=== PATIENT | female | born 1970 | race African-American/Black ===

== ENCOUNTER 2016-11-02 04:18 | Inpatient (IN) ==
[2016-11-02] MEDS ORDERED: methylPREDNISolone SOD SUC 125 MG/2 ML VIAL IV STA (04:29)
[2016-11-02] MEDS ORDERED: SODIUM CHLORIDE 0.9% 1,000 ML IV STA (04:29)
[2016-11-02] MEDS ORDERED: ALBUTEROL/IPRATROPIUM 3 ML NEB RESP TX STA (04:29)
[2016-11-02] MEDS ORDERED: methylPREDNISolone SOD SUC 125 MG/2 ML VIAL ONE (04:32)
[2016-11-02] MEDS ORDERED: IPRATROPIUM 500 MCG/2.5 ML NEB RESP TX STA (04:34)
[2016-11-02] MEDS ORDERED: ALBUTEROL NEB SOLN 5 MG/ML 20 ML/BOTTLE CONT NEB STA (04:35)
[2016-11-02 04:39] LABS: Basophils % 0.1 % (0.0-0.8); Eosinophils % 0.1 % (0.00-10.9); Hematocrit 43.6 VOL% (35.7-47.0); Hemoglobin 14.6 GM/DL (12.0-16.0); Immature Granulocytes % 0.3 %; Immature Granulocytes Absolute 0.04 #; Lymphocytes # 1.6 10*3/uL (1.4-4.0); Lymphocytes % 12.7 % (21.3-54.2); Mean Corpuscular HGB Conc 33.5 GM/DL (32-36); Mean Corpuscular Hemoglobin 30 PG (27-34); Mean Platelet Volume 9.2 FL (9.6-12.0); Monocytes # 0.7 10*3/uL (0.11-0.8); Monocytes % 5.4 % (1.7-12.7); Neutrophils % 81.4 % (38.7-73.9); Platelet Count 412 T/CUMM (130-400); Red Cell Distribution Width 13.4 % (9.3-17.3); White Blood Count 12.3 T/CUMM (4-12)
[2016-11-02] MEDS ORDERED: MAGNESIUM SULF RIDER 2 GM in PREMIX 1 EACH IV STA (04:42)
--- NOTE | 2016-11-02 04:52 | EKG Report ---
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
[2016-11-02] MEDS ORDERED: MAGNESIUM SULF RIDER 50 ML IV ONE (04:57)
[2016-11-02 04:59] LABS: Albumin 3.6 G/DL (3.4-5.0); Bilirubin,Total 0.5 MG/DL (0.2-1.0); Calcium 9.8 MG/DL (8.5-10.1); Total Protein 8.2 G/DL (6.4-8.3)
[2016-11-02 05:00] LABS: Osmolality,Calculated 278.4 MOS/KG (273-304); Potassium 3.7 MMOL/L (3.5-5.1)
--- NOTE | 2016-11-02 05:26 | Emergency Department Note ---
Arrival - Arrival Chief Complaint: Shortness of Breath Stated Complaint: cant breath ED Nursing Triage Note: Pt to triage with c/o SOB thats been going on for the past for weeks. Pt states she does have a hx of asthma. 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 Pt does have expiratory wheezing. Mode of Arrival: Wheelchair Time Seen by Provider: 11/02/16 04:28 - History of Present Illness HPI Narrative: This is a 46-year-old female of descent with a history of hypertension and asthma who presents with 3 days of intractable wheezing and hypoxemia with a room air O2 sat of 85%. There is no history of coronary artery disease or cardiomyopathy. Allergies/Adverse Reactions: Allergies Allergy/AdvReac Type Severity Reaction Status Date / Time aspirin Allergy Severe Swelling Verified 11/02/16 04:29 of Lip/Tongue/Throat ibuprofen [From Motrin] Allergy Severe Swelling Verified 11/02/16 04:29 of Lip/Tongue/Throat Home Medications: Home Medications Medication Instructions Recorded Confirmed Type Ipratropium/Albuterol Inhaler 1 puff INH Q4HR PRN 01/02/15 01/03/15 History [Combivent Respimat Inhaler] Metoprolol Tartrate Tab [Lopressor 50 mg PO DAILY 01/02/15 01/03/15 History Tab] Montelukast Tab [Singulair Tab] 10 mg PO BEDTIME 01/02/15 01/03/15 History amLODIPine [Norvasc] 10 mg PO DAILY 01/02/15 01/03/15 History Review of System - Review of System Constitutional: Absent: fever, night sweats Eyes: Absent: redness, vision change Head/Ears/Nose/Throat: Absent: epistaxis, nasal drainage Respiratory: Present: respiratory distress, wheezing Cardiovascular: Present: dyspnea on exertion. Absent: chest pain, orthopnea Gastrointestinal: Absent: diarrhea, constipation Genitourinary female: Absent: dysuria, urgency Musculoskeletal: Absent: joint swelling, lower back pain Skin: Absent: change in color, change in hair/nails Neurological: Absent: numbness, paresthesias Psychiatric: Absent: anxiety, depression Endocrine: Absent: polydipsia, polyuria Hematological/Lymphatic: Absent: lymphadenopathy Allergic/Immunologic: Absent: urticaria Medical,Surgical,& Family Hx - Medical History Cardio: History of: Hypertension HEENT: History of: HEENT Problems (Sinusitis-For FESS Dr. Barrett 01/03/15) Respiratory: History of: Asthma No history of: Respiratory Problems (Flu/Pneum Vac) Hematology: No history of: Blood Transfusion Reaction (Transfustions) Other: No history of: Anesthesia Reactions - Surgical History Reproductive Surgeries: Surgical HX of;: Hysterectomy (2005), Tubal Ligation ( 2003) Orthopedic Surgeries: Surgical HX of;: Orthopedic Surgery (1998 Lt Ankle) - Family History Family History: Reports;: Family Hypertension (MATERNAL GRANDMOTHER) Denies;: Family Anesthesia Reaction - Social History Smoking Status: Never smoker Frequency of Alcohol Use: None Type of Drug Use: None Exam Vital Signs: Vital Signs Temperature 98.1 F 11/02/16 04:33 Pulse Rate 116 H 11/02/16 04:41 Respiratory Rate 24 11/02/16 04:41 Blood Pressure 182/102 11/02/16 04:33 O2 Sat by Pulse Oximetry 88 L 11/02/16 04:41 - Head Head exam: Present: atraumatic, normocephalic - Eye Eye exam: Present: PERRL, EOMI - ENT ENT exam: Present: normal exam - Neck Neck exam: Present: normal inspection, full ROM - Chest Chest inspection: Present: normal inspection, symmetric chest wall rise - Respiratory Respiratory exam: Present: wheezes - Cardiovascular Cardiovascular exam: Present: tachycardia - Abdominal Exam Abdominal exam: Present: soft, normal bowel sounds - Extremities Exam Extremities exam: Present: normal inspection, full ROM - Back Exam Back exam: Present: normal inspection, full ROM - Neurological Exam Neurological exam: Present: alert, oriented X3, CN II-XII intact - Psychiatric Psychiatric exam: Present: normal affect, normal mood - Skin Skin exam: Present: warm, dry Results - Labs CBC & BMP: 11/02/16 04:31 11/02/16 04:31
[2016-11-02 06:01] LABS: VBG Base Excess -1.3 MEQ/L (0-4); VBG HCO3 22.4 MEQ/L (24-28); VBG Oxygen Saturation 60.2 %; VBG PCO2 51.7 MMHG (41-51); VBG PH 7.31
--- NOTE | 2016-11-02 06:10 | Hospitalist History & Physical ---
Assessment and Plan (1) Acute asthma exacerbation Status: Acute Current Visit: Yes (2) Hypertension Status: Acute Assessment and plan: Our plan for this patient will be admitting her to our service. Schedule her breathing treatments and steroids. Continue home meds as appropriate. Patient has limited resources and probably needs to be on an inhaled steroid but is unable to afford it. Current Visit: Yes History of Present Illness Chief complaint: Shortness of breath and wheezing History of present illness: Ms. Saul is a 46 year old female with past medical history of asthma and hypertension who was in her normal state of health until approximately 4 days ago. Patient reports at that time she noticed increase in her wheezing and her cough. She denies any fever. She reports her cough is dry. She went to a urgent care clinic today and was given a steroid shot in 2 breathing treatments. She felt fairly good the whole day but tonight her symptoms returned. She came up to our hospital for further evaluation I was consulted to admit her for an asthma exacerbation Home Medications Medication Instructions Recorded Confirmed Type Metoprolol Tartrate Tab [Lopressor 50 mg PO DAILY 01/02/15 11/02/16 History Tab] amLODIPine [Norvasc] 10 mg PO DAILY 01/02/15 11/02/16 History Albuterol Sulfate [Proair HFA] 1 - 2 puff INH Q4-6H PRN 11/02/16 11/02/16 History Albuterol/Ipratropium Neb [Duoneb] 1 packet INH Q4-6H PRN 11/02/16 11/02/16 History Loratadine Tab [Claritin Tab] 1 tablet PO DAILY 11/02/16 11/02/16 History Allergies Allergy/AdvReac Type Severity Reaction Status Date / Time aspirin Allergy Severe Swelling Verified 11/02/16 04:29 of Lip/Tongue/Throat ibuprofen [From Motrin] Allergy Severe Swelling Verified 11/02/16 04:29 of Lip/Tongue/Throat Medical,Surgical,& Family Hx - Medical History Cardio: History of: Hypertension HEENT: History of: HEENT Problems (Sinusitis-For FESS Dr. Barrett 01/03/15) Respiratory: History of: Asthma No history of: Respiratory Problems (Flu/Pneum Vac) Hematology: No history of: Blood Transfusion Reaction (Transfustions) Other: No history of: Anesthesia Reactions - Surgical History Reproductive Surgeries: Surgical HX of;: Hysterectomy (2006), Tubal Ligation ( 2004) Orthopedic Surgeries: Surgical HX of;: Orthopedic Surgery (1998 Lt Ankle) - Family History Family History: Reports;: Family Hypertension (MATERNAL GRANDMOTHER) Denies;: Family Anesthesia Reaction - Social History Smoking Status: Never smoker Frequency of Alcohol Use: None Type of Drug Use: None 12 point system: reviewed and no additional remarkable complaints except as stated Exam - Constitutional Vitals: Period Temp Pulse Resp BP Sys/Grossman Pulse Ox Last 24 Hr 98.1 F-98.1 F 116-124 14-24 182-182/102-102 82-88 General appearance: over weight - Head Head exam: Present: normal inspection - Eye Eye exam: Present: EOMI Pupils: Present: KIMBERLY - ENT ENT exam: Present: normal exam - Neck Neck exam: Present: normal inspection - Respiratory Respiratory exam: Present: wheezes - Cardiovascular Cardiovascular exam: Present: tachycardia - GI/Abdominal GI/Abdominal exam: Present: normal bowel sounds - Extremities Exam Extremities exam: Present: normal inspection - Back Exam Back exam: Present: normal inspection - Neurological Exam Neurological exam: Present: alert Results - Labs CBC & BMP: 11/02/16 04:31 11/02/16 04:31
[2016-11-02] MEDS ORDERED: ALBUTEROL 2.5 MG/3 ML NEB RESP TX PRN (06:12)
[2016-11-02] MEDS ORDERED: ONDANSETRON 4 MG/2 ML VIAL IV PRN (06:12)
--- NOTE | 2016-11-02 06:50 | XRay Report ---
XR chest 1V portable Indication: Shortness of breath. Chest one view: No comparison. Heart size and mediastinal contour are normal. There is diffuse mild parabronchial thickening present. No focal infiltrates are shown. Pleural spaces are clear. Bones are intact. Impression: Mild airways disease such as bronchitis or viral syndrome. No focal pneumonia. PROCEDURE INTERPRETED AT [facility] DEPARTMENT OF RADIOLOGY Final Report Signed by: Eriberto Carrillo M.D.
[2016-11-02] MEDS: ALBUTEROL/IPRATROPIUM 3 ML NEB RESP TX SCH ×3 (07:34→19:09)
[2016-11-02] MEDS: LORATADINE 10 MG TABLET PO SCH (09:02)
[2016-11-02] MEDS: ENOXAPARIN 40 MG/0.4 ML SYRINGE SUBCUT SCH (09:02)
[2016-11-02] MEDS: amLODIPine 10 MG TABLET PO SCH (09:02)
[2016-11-02] MEDS: methylPREDNISolone SOD SUC 125 MG/2 ML VIAL IV SCH ×3 (09:02→21:22)
[2016-11-02] MEDS: PANTOPRAZOLE 40 MG TABLET PO SCH (09:02)
[2016-11-02] MEDS: METOPROLOL TARTRATE 50 MG TABLET PO SCH (09:02)
--- NOTE | 2016-11-02 11:36 | Hospitalist Progress Note ---
Assessment and Plan (1) Respiratory distress Status: Acute Assessment and plan: This is a result of bronchospasm and possible pneumonitis and hypoxia as noted below patient is on supportive care with nasal cannula oxygen at this time and saturating well. Is on aggressive respiratory treatments and a beta-2 organism. Current Visit: Yes (2) Status asthmaticus Status: Acute Assessment and plan: Aggressively treated the patient with ipratropium bromide plus albuterol by nebulizer. She should also be on systemic steroids with Solu-Medrol preferably 40 mg IV every 8 hours at this time. I will start her on budesonide 0.5 mg inhaled every 12 hours. He should continue this at home. Because of recurrence of a problem she will need long-term leukotriene antagonist. Singulair 10 mg daily may help. She states that these events are much more frequent now and she thinks maybe there is mold in her immediate environment at her place of residence. I informed the patient that this needs to be taken care of because if not these events will continue. Pharmacy will check levels of IgE and if the elevated there has to be an attempt to obtain level of Aspergillus specific IgE. Will probably need to be seen by a tree fruit and nut farming supervisor at that time. Right now will take care of the acute events in the hospital diagnoses acute exacerbation of asthma with status asthmaticus which seem to be improving and looking at the events from yesterday to today Current Visit: Yes (3) Acute respiratory failure with hypoxia Status: Acute Assessment and plan: As above patient is on oxygen support at this time per nasal cannula alone. Current Visit: Yes (4) Morbid obesity Status: Acute Current Visit: Yes (5) Pneumonitis Status: Acute Assessment and plan: Chest x-ray looks the patient has a pneumonitis bibasilarly. This could be an acute viral syndrome it could also be just small airway inflammation. Is afebrile. I will check for mycoplasma IgM. Put her on Levaquin 750 IV every day. Current Visit: Yes Hospitalist: Subjective Interval history: Patient has been seen interviewed and examined and chart has been reviewed. She was admitted area morning hours of today after distress noted in the emergency room to be in status asthmaticus with decreased PO2 by pulse oximetry. There is an arterial blood gas drawn but from what I can look at this was a venous blood draw. She is reporting recurrent events of bronchospasms and asthma symptoms and states that he started happening when she moved into a residence not a long time ago. She has not had any events of intubation with this issue. Strongly suspicious that there is mold around where she is living. With that in mind I would worry about allergic bronchospastic aspergillosis. Will check IgE levels. She is on some oral steroids and states that whenever she gets steroids and "antibiotics" she gets better. There has been no associated fever her expectoration is very thin this most of bronchospasms. I did advise the patient that she probably does not need antibiotics but will probably need steroids therapy more aggressively. She is not on Singulair and I doubt that she is on any inhaled steroids because she stated that in the past she has been unable to obtain them. Exam - Constitutional Vitals: Period Temp Pulse Resp BP Sys/Grossman Pulse Ox Last 24 Hr 96.6 F-98.1 F 110-130 14-105 124-182/69-102 82-93 General appearance: morbidly obese - Head Head exam: Present: normocephalic, atraumatic - Eye Eye exam: Present: EOMI Pupils: Present: KIMBERLY - ENT ENT exam: Present: normal exam, normal oropharynx - Respiratory Respiratory exam: Present: clear to auscultation bilaterally, wheezes ( Bilateral wheezing with prolonged expiratory phase ratio of 1-2 she has to stop speaking at times to catch her breath.) - Cardiovascular Cardiovascular exam: Present: tachycardia, other (Just has had a respiratory treatment regular rhythm) - GI/Abdominal GI/Abdominal exam: Present: normal bowel sounds, soft - Extremities Exam Extremities exam: Present: full ROM - Neurological Exam Neurological exam: Present: alert, oriented X3, CN II-XII intact - Psychiatric Psychiatric exam: Present: normal mood, other (Slightly apprehensive) - Skin Skin exam: Present: normal color, warm, dry Results - Labs CBC & BMP: 11/02/16 04:31 11/02/16 04:31 Lab Results: I have reviewed the past 24 hour labs
[2016-11-02] MEDS: LEVOFLOXACIN INJ 750 MG in PREMIX 1 EACH IV SCH (12:28)
[2016-11-02] MEDS: BENZONATATE 100 MG CAPSULE PO PRN ×2 (17:06→21:22)
[2016-11-02] MEDS: MONTELUKAST 10 MG TABLET PO SCH (21:22)
[2016-11-02] MEDS: ZALEPLON 5 MG CAPSULE PO PRN (21:26)
[2016-11-03] MEDS: ALBUTEROL/IPRATROPIUM 3 ML NEB RESP TX SCH ×4 (00:24→19:24)
[2016-11-03] MEDS: methylPREDNISolone SOD SUC 125 MG/2 ML VIAL IV SCH ×4 (04:24→22:05)
[2016-11-03 05:05] LABS: Basophils % 0.1 % (0.0-0.8); Hematocrit 39.4 VOL% (35.7-47.0); Hemoglobin 13.3 GM/DL (12.0-16.0); Immature Granulocytes % 0.7 %; Immature Granulocytes Absolute 0.16 #; Lymphocytes % 4.3 % (21.3-54.2); Mean Corpuscular HGB Conc 33.8 GM/DL (32-36); Mean Corpuscular Hemoglobin 30 PG (27-34); Mean Corpuscular Volume 88.9 FL (87-102); Mean Platelet Volume 9.3 FL (9.6-12.0); Monocytes # 0.7 10*3/uL (0.11-0.8); Monocytes % 2.9 % (1.7-12.7); Neutrophils # 21.9 10*3/uL (1.4-7.4); Platelet Count 411 T/CUMM (130-400); Red Blood Count 4.43 MC/CUMM (3.8-5.5); Red Cell Distribution Width 13.9 % (9.3-17.3); White Blood Count 23.9 T/CUMM (4-12)
[2016-11-03 05:33] LABS: Albumin 2.8 G/DL (3.4-5.0); Bilirubin,Total 0.5 MG/DL (0.2-1.0); Calcium 9.2 MG/DL (8.5-10.1); Osmolality,Calculated 280.3 MOS/KG (273-304); Potassium 4.1 MMOL/L (3.5-5.1); Total Protein 6.5 G/DL (6.4-8.3)
[2016-11-03 05:35] LABS: Band Neutrophils 2 % (0-10); Giant Platelets Few; Lymphocytes 1 % (20-55); Platelet Estimate Adequate; Segmented Neutrophils 92 % (50-85); Total Cells Counted 100
--- NOTE | 2016-11-03 08:12 | Physician Query Form ---
CLICK EDIT DOCUMENT TO SELECT QUERY ANSWER --> OK --> SIGN Catalina García RN, CCDS Certified Clinical Power Brake Rebuilder W) [phone] (f) [phone] [email or web address] PROVIDERS: Make your selection(s) from the choices in EACH section by typing an "x" and enter comments in the comment section. Please use your independent medical judgment in providing your response. This request does not imply that any particular answer is desired or expected. CLINICAL INDICATORS: (Providers should not edit this section) The medical record indicates that the patient was admitted with acute asthma exacerbation, pneumonitis and the patient was treated with Proventil/ Levofloxacin/Solumedrol. Based on documentation of Asthma, can you please provide further specificity regarding the diagnosis? ( ) Mild intermittent extrinsic asthma with acute exacerbation ( ) Mild persistent extrinsic asthma with acute exacerbation ( ) Moderate persistent extrinsic asthma with acute exacerbation ( x) Severe persistent extrinsic asthma with acute exacerbation ( ) Mild intermittent extrinsic asthma with status asthmaticus ( ) Mild persistent extrinsic asthma with status asthmaticus ( ) Moderate persistent extrinsic asthma with status asthmaticus ( ) Severe intermittent extrinsic asthma with status asthmaticus ( ) Other, please specify: ( ) Clinically unable to determine COMMENTS: PLEASE ALSO DOCUMENT RESPONSE IN PROGRESS NOTES AND/OR DISCHARGE SUMMARY Use of terms such as suspected, likely, or probable (associated with a specific diagnosis that is being evaluated, monitored, or treated as if it exists) are acceptable and can be restated in the discharge summary if not ruled out. MTDD
[2016-11-03] MEDS: LORATADINE 10 MG TABLET PO SCH (08:18)
[2016-11-03] MEDS: amLODIPine 10 MG TABLET PO SCH (08:18)
[2016-11-03] MEDS: BENZONATATE 100 MG CAPSULE PO PRN ×2 (08:18→22:05)
[2016-11-03] MEDS: PANTOPRAZOLE 40 MG TABLET PO SCH (08:19)
[2016-11-03] MEDS: METOPROLOL TARTRATE 50 MG TABLET PO SCH (08:19)
[2016-11-03] MEDS: LEVOFLOXACIN INJ 750 MG in PREMIX 1 EACH IV SCH (08:19)
[2016-11-03] MEDS: ENOXAPARIN 40 MG/0.4 ML SYRINGE SUBCUT SCH (08:19)
--- NOTE | 2016-11-03 11:07 | Hospitalist Progress Note ---
Assessment and Plan (1) Respiratory distress Status: Acute Assessment and plan: This is a result of bronchospasm and possible pneumonitis and hypoxia as noted below patient is on supportive care with nasal cannula oxygen at this time and saturating well. Is on aggressive respiratory treatments and a beta-2 organism. Current Visit: Yes (2) Status asthmaticus Status: Acute Assessment and plan: Is obvious improvement from yesterday's situation. Patient will continue the same medication however we will keep him on oxygen supplementation using 2 L nasal cannula oxygen check peak flows every morning. I wanted to send her home today but because of the pleurisy and the relative hypoxemia she is still here on medications. I believe she will need a longer steroid taper with systemic steroids she should be on aerosolized steroids besides albuterol and ipratropium bromide. This should be a long-acting rescue treatment to every 12 hours with Advair (budesonide and sameterol.) Current Visit: Yes (3) Acute respiratory failure with hypoxia Status: Acute Assessment and plan: Still relatively hypoxic but she is getting better Current Visit: Yes (4) Morbid obesity Status: Acute Current Visit: Yes (5) Pneumonitis Status: Acute Assessment and plan: Chest x-ray looks the patient has a pneumonitis bibasilarly. This could be an acute viral syndrome it could also be just small airway inflammation. Is afebrile. I will check for mycoplasma IgM. Put her on Levaquin 750 IV every day. Current Visit: Yes Hospitalist: Subjective Interval history: Patient has been seen interviewed and examined and chart has been reviewed. Is still having negative wheezing she also complained of a pleuritic chest pain on the left side. Patient has 94% saturation of the 2 L of nasal cannula oxygen. I took her off the oxygen to evaluate if I could send her home she dropped down to 92 and was short of air and fighting to breathe. Admitted to the hospital in status asthmaticus yesterday has responded some to steroid beta-2 agonists, ipratropium bromide and systemic steroids but is still hypoxic. She also did have a pneumonitis on the chest x-ray I suspect that is the reason. She is not febrile. Does not have a cardiomegaly on chest x-ray. I believe this is asthma just taking time to get better will check it with a peak flows every morning including today. Exam - Constitutional Vitals: Period Temp Pulse Resp BP Sys/Grossman Pulse Ox Last 24 Hr 96.7 F-98.3 F 64-119 18-23 120-135/60-78 90-98 General appearance: morbidly obese - Head Head exam: Present: normocephalic, atraumatic - Eye Eye exam: Present: EOMI Pupils: Present: KIMBERLY - Respiratory Respiratory exam: Present: wheezes, other (Diffuse wheezing and complaining of pruritus on the left side. Hypoxic on room air with air hunger) - Cardiovascular Cardiovascular exam: Present: bradycardia, regular rate and rhythm - GI/Abdominal GI/Abdominal exam: Present: normal bowel sounds, soft - Extremities Exam Extremities exam: Present: full ROM - Neurological Exam Neurological exam: Present: alert, oriented X3, CN II-XII intact - Psychiatric Psychiatric exam: Present: normal affect, normal mood - Skin Skin exam: Present: normal color, warm, dry Results - Labs CBC & BMP: 11/03/16 04:49 11/03/16 04:49 Lab Results: I have reviewed the past 24 hour labs
[2016-11-03] MEDS: MONTELUKAST 10 MG TABLET PO SCH (22:05)
[2016-11-03] MEDS: ZALEPLON 5 MG CAPSULE PO PRN (22:05)
[2016-11-04] MEDS: ALBUTEROL/IPRATROPIUM 3 ML NEB RESP TX SCH ×4 (00:25→19:20)
[2016-11-04] MEDS: methylPREDNISolone SOD SUC 125 MG/2 ML VIAL IV SCH ×2 (04:35→08:25)
[2016-11-04] MEDS: METOPROLOL TARTRATE 50 MG TABLET PO SCH (08:22)
[2016-11-04] MEDS: amLODIPine 10 MG TABLET PO SCH (08:22)
[2016-11-04] MEDS: BENZONATATE 100 MG CAPSULE PO PRN ×2 (08:22→20:54)
[2016-11-04] MEDS: PANTOPRAZOLE 40 MG TABLET PO SCH (08:23)
[2016-11-04] MEDS: LORATADINE 10 MG TABLET PO SCH (08:23)
[2016-11-04] MEDS: ENOXAPARIN 40 MG/0.4 ML SYRINGE SUBCUT SCH (08:24)
[2016-11-04] MEDS: LEVOFLOXACIN INJ 750 MG in PREMIX 1 EACH IV SCH (09:37)
--- NOTE | 2016-11-04 10:49 | Hospitalist Progress Note ---
Assessment and Plan (1) Acute asthma exacerbation Status: Acute Assessment and plan: Getting better Kayla Will change steroids to po Continue levaquin Current Visit: Yes (2) Hypertension Status: Chronic Current Visit: Yes (3) Respiratory distress Status: Resolved Current Visit: Yes (4) Status asthmaticus Status: Resolved Current Visit: Yes (5) Morbid obesity Status: Chronic Current Visit: Yes (6) Pneumonitis Status: Acute Assessment and plan: Continue levaquin Current Visit: Yes Hospitalist: Subjective Interval history: No acute events overnight. Patient reports that she feels better. She is coughing up phlegm now. Exam - Constitutional Vitals: Period Temp Pulse Resp BP Sys/Grossmna Pulse Ox Last 24 Hr 96.2 F-98.9 F 89-111 18-22 107-140/64-79 92-98 General appearance: over weight - Head Head exam: Present: normocephalic, atraumatic - Eye Eye exam: Present: EOMI Pupils: Present: KIMBERLY - ENT ENT exam: Present: normal exam - Neck Neck exam: Present: normal inspection - Respiratory Respiratory exam: Present: other (coarse breath sounds). Absent: wheezes - Cardiovascular Cardiovascular exam: Present: regular rate and rhythm - GI/Abdominal GI/Abdominal exam: Present: normal bowel sounds, soft - Extremities Exam Extremities exam: Present: normal inspection - Back Exam Back exam: Present: normal inspection - Neurological Exam Neurological exam: Present: alert, oriented X3 - Psychiatric Psychiatric exam: Present: normal affect, normal mood - Skin Skin exam: Present: warm, intact Results - Labs CBC & BMP: 11/03/16 04:49 11/03/16 04:49
[2016-11-04 13:41] LABS: Mycoplasma pneumoniae Ab, IgG 1.88 index (<=0.90); Mycoplasma pneumoniae Ab, IgM 0.19 index (<=0.90)
[2016-11-04] MEDS: MONTELUKAST 10 MG TABLET PO SCH (20:52)
[2016-11-04] MEDS: ZALEPLON 5 MG CAPSULE PO PRN (20:52)
[2016-11-05] MEDS: ALBUTEROL/IPRATROPIUM 3 ML NEB RESP TX SCH ×2 (00:38→07:38)
[2016-11-05] MEDS: PANTOPRAZOLE 40 MG TABLET PO SCH (08:21)
[2016-11-05] MEDS: LORATADINE 10 MG TABLET PO SCH (08:22)
[2016-11-05] MEDS: BENZONATATE 100 MG CAPSULE PO PRN (08:23)
[2016-11-05] MEDS: METOPROLOL TARTRATE 50 MG TABLET PO SCH (08:23)
[2016-11-05] MEDS: amLODIPine 10 MG TABLET PO SCH (08:24)
[2016-11-05] MEDS: ENOXAPARIN 40 MG/0.4 ML SYRINGE SUBCUT SCH (08:24)
[2016-11-05] MEDS: LEVOFLOXACIN INJ 750 MG in PREMIX 1 EACH IV SCH (08:25)
[2016-11-05 08:32] VITALS: BP 123/74
[2016-11-05] MEDS ORDERED: predniSONE 20 MG TABLET PO SCH (09:00)
--- NOTE | 2016-11-05 11:07 | Discharge Summary ---
<Jann Mayo - Last Filed: 11/05/16 10:41> Hospital Course - Hospital Course Hospital Course: Ms. Saul is a 46 year old female who was admitted with acute asthma exacerbation on 11/02/2016. She was found to be in respiratory distress, status asthmaticus and pneumonitis. She was started on O2, scheduled duonebs, systemic steroids with solu-medrol, ICS and singulair. She was also started on IV levaquin 750mg daily. She improved slowly with this regimen and is now stable for discharge home at this time. She will need continued home therapy for asthma exacerbations. The patient has been given information on the local free clinic and should follow up for management of her asthma. - Time spent with patient Time with patient DS: Greater than 30 minutes Discharge Plan - Discharge Data Disposition: Disch To Home/Self Care - Discharge Medications New Levofloxacin Tab [Levaquin Tab] 750 mg PO DAILY #2 tablet Montelukast Tab [Singulair Tab] 10 mg PO BEDTIME #30 tablet predniSONE TAB [PredniSONE] 10 mg PO DAILY #34 tablet Continue amLODIPine [Norvasc] 10 mg PO DAILY Metoprolol Tartrate Tab [Lopressor Tab] 50 mg PO DAILY Albuterol/Ipratropium Neb [Duoneb] 3 ml INH Q2H PRN PRN Reason: Shortness Of Breath Loratadine Tab [Claritin Tab] 10 mg PO DAILY Ipratropium/Albuterol Inhaler [Combivent Respimat Inhaler] 1 puff INH QID PRN PRN Reason: Shortness Of Breath - Follow Up or Referral - Forms/Instructions Exam - Constitutional Vitals: Period Temp Pulse Resp BP Sys/Grossman Pulse Ox Last 24 Hr 97.1 F-98.4 F 64-104 18-22 109-145/68-89 92-99 Discharge Results Labs on day of discharge: Labs from last 24 hours 11/02/16 04:30 M.pneumoniae IgG Titer 1.88 M.pneumoniae IgM Titer 0.19 DS: Provider Date of admission: 11/02/16 06:12 Primary care physician: . No PCP Attending physician on admission: Eriberto Hollingsworth MD Discharging clinician: Jann WORRELL Expected date of discharge: 11/05/16 <Tyrone Bundy - Last Filed: 11/05/16 11:14> Hospital Course - Time spent with patient Time with patient DS: Greater than 30 minutes (35) Diagnosis - Discharge Diagnosis (1) Acute asthma exacerbation Status: Resolved (2) Hypertension Status: Chronic (3) Respiratory distress Status: Resolved (4) Status asthmaticus Status: Resolved (5) Morbid obesity Status: Chronic (6) Pneumonitis Status: Resolved Discharge Plan - Discharge Data Condition at Discharge: Stable Discharge Diet: advance to your usual diet Activity: increase activity as tolerated Hygiene: no restrictions Driving: no restrictions Contact your physician if you experience:: Shortness of breath Exam - Constitutional General appearance: over weight - Head Head exam: Present: normocephalic, atraumatic - Eye Eye exam: Present: EOMI Pupils: Present: KIMBERLY - ENT ENT exam: Present: normal exam - Neck Neck exam: Present: normal inspection - Respiratory Respiratory exam: Present: clear to auscultation bilaterally. Absent: rhonchi, wheezes - Cardiovascular Cardiovascular exam: Present: regular rate and rhythm - GI/Abdominal GI/Abdominal exam: Present: normal bowel sounds, soft. Absent: tenderness, rebound - Extremities Exam Extremities exam: Present: normal inspection - Back Exam Back exam: Present: normal inspection - Neurological Exam Neurological exam: Present: alert, oriented X3 - Psychiatric Psychiatric exam: Present: normal affect, normal mood - Skin Skin exam: Present: warm, intact
== END 2016-11-05 12:05 | disposition home or self-care (01) | DRG 193 ==
LOC: N.ED 04:18 → SUATTDRO 06:12 → N.EDINP 06:12 → N.2E 06:48
PROVIDERS: ADMIT Internal Medicine; ATTEND Internal Medicine

== ENCOUNTER 2017-04-01 22:58 | Observation (INO) ==
[2017-04-01] MEDS ORDERED: ACETAMINOPHEN 325 MG/10.15 ML UDCUP ONE (23:07)
[2017-04-01] MEDS ORDERED: methylPREDNISolone SOD SUC 125 MG/2 ML VIAL IV STA (23:17)
[2017-04-01] MEDS ORDERED: MAGNESIUM SULF RIDER 2 GM in PREMIX 1 EACH IV STA (23:17)
[2017-04-01] MEDS ORDERED: methylPREDNISolone SOD SUC 125 MG/2 ML VIAL ONE (23:19)
[2017-04-01] MEDS ORDERED: MAGNESIUM SULF RIDER 50 ML IV ONE (23:20)
[2017-04-01] MEDS ORDERED: ALBUTEROL 2.5 MG/3 ML NEB RESP TX ONE (23:28)
[2017-04-01] MEDS ORDERED: ALBUTEROL 2.5 MG/3 ML NEB RESP TX SCH (23:30)
[2017-04-01 23:40] LABS: Basophils # 0.1 10*3/uL (0.0-0.2); Basophils % 0.8 % (0.0-0.8); Eosinophils # 0.8 10*3/uL (0.0-0.87); Hematocrit 42.1 VOL% (35.7-47.0); Hemoglobin 13.7 GM/DL (12.0-16.0); Immature Granulocytes % 0.3 %; Immature Granulocytes Absolute 0.03 #; Lymphocytes % 38.4 % (21.3-54.2); Mean Corpuscular HGB Conc 32.5 GM/DL (32-36); Mean Corpuscular Hemoglobin 30 PG (27-34); Mean Corpuscular Volume 91.9 FL (87-102); Mean Platelet Volume 9.5 FL (9.6-12.0); Monocytes # 0.9 10*3/uL (0.11-0.8); Monocytes % 8.6 % (1.7-12.7); Neutrophils # 4.6 10*3/uL (1.4-7.4); Neutrophils % 43.9 % (38.7-73.9); Platelet Count 379 T/CUMM (130-400); Red Blood Count 4.58 MC/CUMM (3.8-5.5); Red Cell Distribution Width 13.2 % (9.3-17.3); White Blood Count 10.5 T/CUMM (4-12)
[2017-04-01 23:50] LABS: PT Patient Result 10.7 SECS
[2017-04-01 23:54] LABS: ABG Base Excess -2.5 MMOL/L (-2.5-2.5); ABG HCO3 21.2 MMOL/L (20-26); ABG Oxygen Saturation 92.3 % (95-100); ABG PCO2 33.9 MM HG (35-48); ABG PH 7.415 (7.35-7.45); ABG PO2 66.9 MM HG (80-95); ABG TCO2 22.3 MMOL/L (23-27); Allen Test Positive
[2017-04-02 00:03] LABS: Alanine Aminotransferase 19 U/L (13-56); Albumin 3.6 G/DL (3.4-5.0); Alkaline Phosphatase 105 U/L (45-117); Aspartate Amino Transferase 20 U/L (0-37); Blood Urea Nitrogen 13 MG/DL (7-18); Calcium 9.3 MG/DL (8.5-10.1); Glucose 103 MG/DL (74-106); Magnesium 2.3 MG/DL (1.8-2.4); Osmolality,Calculated 280.3 MOS/KG (273-304); Potassium 4.2 MMOL/L (3.5-5.1); Sodium 141 MMOL/L (136-145); Total Protein 7.5 G/DL (6.4-8.3); Troponin I Only < 0.015 NG/ML (0.00-0.045)
[2017-04-02 01:53] LABS: Apearance,Urine CLEAR (Clear); Bilirubin,Urine Negative (Negative); Blood, Urine Negative (Negative); Glucose,Urine (UA) Negative (Negative); Ketones,Urine Negative (Negative); Mucus,Urine Occasional /LPF (Occasional); Nitrite,Urine Negative (Negative); Protein,Urine Negative; Urine Color Straw (Yellow); Urine Specific Gravity 1.008 (1.001-1.035); Urine Urobilinogen < 2.0 EU/DL (0.2-1.0)
[2017-04-02 02:28] LABS: Barbiturates Screen,Urine Negative (Negative); Benzodiazepines Screen,Urine Negative (Negative); Cannabinoid Screen,Urine Negative (Negative); Opiate Screen,Urine Negative (Negative); Phencyclidine Screen,Urine Negative (Negative)
[2017-04-02] MEDS ORDERED: ALBUTEROL 2.5 MG/3 ML NEB RESP TX ONE (02:42)
[2017-04-02] MEDS: ALBUTEROL 2.5 MG/3 ML NEB RESP TX SCH ×5 (02:49→19:44)
[2017-04-02] MEDS ORDERED: ENOXAPARIN 40 MG/0.4 ML SYRINGE ONE (03:26)
[2017-04-02] MEDS ORDERED: AZITHROMYCIN 500 MG VIAL IV ONE (03:26)
[2017-04-02] MEDS: ENOXAPARIN 40 MG/0.4 ML SYRINGE SUBCUT SCH (03:35)
[2017-04-02] MEDS: AZITHROMYCIN INJ 500 MG in SODIUM CHLORIDE 0.9% 250 ML IV SCH (04:00)
[2017-04-02 04:59] LABS: Basophils % 0.3 % (0.0-0.8); Eosinophils % 0.1 % (0.00-10.9); Hematocrit 39.7 VOL% (35.7-47.0); Immature Granulocytes % 0.4 %; Immature Granulocytes Absolute 0.04 #; Lymphocytes # 0.5 10*3/uL (1.4-4.0); Mean Corpuscular HGB Conc 32.7 GM/DL (32-36); Mean Corpuscular Hemoglobin 30 PG (27-34); Mean Corpuscular Volume 90.8 FL (87-102); Mean Platelet Volume 9.3 FL (9.6-12.0); Monocytes # 0.1 10*3/uL (0.11-0.8); Monocytes % 1.3 % (1.7-12.7); Neutrophils # 9.8 10*3/uL (1.4-7.4); Neutrophils % 92.9 % (38.7-73.9); Platelet Count 372 T/CUMM (130-400); Red Blood Count 4.37 MC/CUMM (3.8-5.5); Red Cell Distribution Width 13.1 % (9.3-17.3); White Blood Count 10.5 T/CUMM (4-12)
[2017-04-02 05:41] LABS: Calcium 8.6 MG/DL (8.5-10.1); Osmolality,Calculated 286.1 MOS/KG (273-304); Potassium 3.2 MMOL/L (3.5-5.1)
[2017-04-02] MEDS: methylPREDNISolone SOD SUC 40 MG/1 ML VIAL IV SCH ×2 (05:46→16:06)
[2017-04-02 06:43] LABS: Band Neutrophils 1 % (0-10); Lymphocytes 7 % (20-55); Segmented Neutrophils 92 % (50-85); Total Cells Counted 100
[2017-04-02] MEDS: METOPROLOL TARTRATE 50 MG TABLET PO SCH (08:44)
[2017-04-02] MEDS: amLODIPine 10 MG TABLET PO SCH (08:44)
[2017-04-02] MEDS: FLUTICASONE/SALMETEROL 250-50 DISKUS 14 DOSE INH SCH ×2 (08:44→21:43)
[2017-04-02] MEDS: LORATADINE 10 MG TABLET PO SCH (08:44)
[2017-04-02] MEDS ORDERED: ALBUTEROL/IPRATROPIUM 3 ML NEB RESP TX PRN (10:30)
[2017-04-02] MEDS: THEOPHYLLINE ER (24 HR) 300 MG CAPSULE PO SCH (12:14)
[2017-04-02] MEDS ORDERED: ZALEPLON 5 MG CAPSULE PO PRN (16:02)
[2017-04-02] MEDS ORDERED: MONTELUKAST 10 MG TABLET PO SCH (21:00)
[2017-04-03] MEDS: ALBUTEROL 2.5 MG/3 ML NEB RESP TX SCH ×3 (00:03→07:08)
[2017-04-03] MEDS: methylPREDNISolone SOD SUC 40 MG/1 ML VIAL IV SCH ×2 (00:22→08:42)
[2017-04-03 06:46] LABS: Basophils % 0.2 % (0.0-0.8); Hematocrit 38.4 VOL% (35.7-47.0); Hemoglobin 12.6 GM/DL (12.0-16.0); Immature Granulocytes % 0.7 %; Immature Granulocytes Absolute 0.13 #; Lymphocytes # 1.2 10*3/uL (1.4-4.0); Lymphocytes % 6.2 % (21.3-54.2); Mean Corpuscular HGB Conc 32.8 GM/DL (32-36); Mean Corpuscular Hemoglobin 30 PG (27-34); Mean Corpuscular Volume 90.6 FL (87-102); Mean Platelet Volume 9.7 FL (9.6-12.0); Monocytes # 0.5 10*3/uL (0.11-0.8); Monocytes % 2.6 % (1.7-12.7); Neutrophils # 17.9 10*3/uL (1.4-7.4); Neutrophils % 90.3 % (38.7-73.9); Platelet Count 383 T/CUMM (130-400); Red Blood Count 4.24 MC/CUMM (3.8-5.5); Red Cell Distribution Width 13.4 % (9.3-17.3); White Blood Count 19.8 T/CUMM (4-12)
[2017-04-03 07:10] LABS: Calcium 8.7 MG/DL (8.5-10.1); Osmolality,Calculated 280.4 MOS/KG (273-304)
[2017-04-03] MEDS: FLUTICASONE/SALMETEROL 250-50 DISKUS 14 DOSE INH SCH (08:36)
[2017-04-03] MEDS: LORATADINE 10 MG TABLET PO SCH (08:39)
[2017-04-03] MEDS: METOPROLOL TARTRATE 50 MG TABLET PO SCH (08:39)
[2017-04-03] MEDS: amLODIPine 10 MG TABLET PO SCH (08:40)
[2017-04-03] MEDS: ENOXAPARIN 40 MG/0.4 ML SYRINGE SUBCUT SCH (08:40)
[2017-04-03] MEDS: THEOPHYLLINE ER (24 HR) 300 MG CAPSULE PO SCH (08:40)
[2017-04-03] MEDS: AZITHROMYCIN INJ 500 MG in SODIUM CHLORIDE 0.9% 250 ML IV SCH (08:45)
[2017-04-03 12:40] VITALS: BP 105/59
== END 2017-04-03 12:53 | disposition home or self-care (01) ==
LOC: N.ED 22:58 → INTOOBSV 04-02 01:09 → N.EDINP 04-02 01:09 → N.CC 04-02 04:02 → N.2E 04-02 10:13

== ENCOUNTER 2018-01-12 18:59 | Observation (INO) ==
[2018-01-12] MEDS ORDERED: methylPREDNISolone SOD SUC 125 MG/2 ML VIAL ONE (19:01)
[2018-01-12] MEDS ORDERED: ALBUTEROL NEB SOLN 5 MG/ML 20 ML/BOTTLE CONT NEB STA (19:05)
[2018-01-12] MEDS ORDERED: methylPREDNISolone SOD SUC 125 MG/2 ML VIAL IV STA (19:05)
[2018-01-12] MEDS ORDERED: TERBUTALINE 1 MG/1 ML VIAL SUBCUT ONE (19:09)
[2018-01-12] MEDS ORDERED: ALBUTEROL/IPRATROPIUM 3 ML NEB RESP TX STA ×3 (19:17)
[2018-01-12 19:29] LABS: Basophils # 0.1 10*3/uL (0.0-0.2); Basophils % 0.6 % (0.0-0.8); Eosinophils # 1.1 10*3/uL (0.0-0.87); Eosinophils % 9.7 % (0.00-10.9); Hematocrit 39.6 VOL% (35.7-47.0); Hemoglobin 12.9 GM/DL (12.0-16.0); Immature Granulocytes % 0.4 %; Immature Granulocytes Absolute 0.04 #; Lymphocytes # 4.3 10*3/uL (1.4-4.0); Lymphocytes % 37.4 % (21.3-54.2); Mean Corpuscular HGB Conc 32.6 GM/DL (32-36); Mean Corpuscular Hemoglobin 30 PG (27-34); Mean Corpuscular Volume 91.2 FL (87-102); Mean Platelet Volume 8.7 FL (9.6-12.0); Monocytes # 0.9 10*3/uL (0.11-0.8); Monocytes % 8.3 % (1.7-12.7); Neutrophils % 43.6 % (38.7-73.9); Platelet Count 362 T/CUMM (130-400); Red Blood Count 4.34 MC/CUMM (3.8-5.5); Red Cell Distribution Width 13.4 % (9.3-17.3); White Blood Count 11.4 T/CUMM (4-12)
[2018-01-12 19:38] LABS: VBG Base Excess -2.7 MEQ/L (0-4); VBG HCO3 22.1 MEQ/L (24-28); VBG Oxygen Saturation 93.2 %; VBG PCO2 40.7 MMHG (41-51); VBG PH 7.354; VBG PO2 68.6 MMHG (17-40)
[2018-01-12 19:39] LABS: PT Patient Result 10.2 SECS; Partial Thromboplastin Time 26.9 SECS (0-40)
[2018-01-12 20:21] LABS: Alanine Aminotransferase 26 U/L (13-56); Albumin 3.4 G/DL (3.4-5.0); Alkaline Phosphatase 82 U/L (45-117); Aspartate Amino Transferase 21 U/L (0-37); Bilirubin,Total < 0.39 MG/DL (0.2-1.0); Blood Urea Nitrogen 10 MG/DL (7-18); Calcium 8.7 MG/DL (8.5-10.1); Glucose 104 MG/DL (74-106); Osmolality,Calculated 271.8 MOS/KG (273-304); Potassium 3.7 MMOL/L (3.5-5.1); Sodium 137 MMOL/L (136-145); Total Protein 7.8 G/DL (6.4-8.3)
[2018-01-12] MEDS ORDERED: ONDANSETRON 4 MG/2 ML VIAL IV PRN (21:22)
[2018-01-12] MEDS ORDERED: MONTELUKAST 10 MG TABLET PO SCH (22:30)
[2018-01-13] MEDS: FLUTICASONE/SALMETEROL 500-50 DISKUS 14 DOSE INH SCH ×2 (01:08→10:20)
[2018-01-13] MEDS: LEVALBUTEROL 1.25 MG/3 ML NEB RESP TX SCH ×2 (01:30→07:20)
[2018-01-13 04:48] LABS: Basophils % 0.2 % (0.0-0.8); Hematocrit 39.1 VOL% (35.7-47.0); Hemoglobin 12.6 GM/DL (12.0-16.0); Immature Granulocytes % 0.7 %; Immature Granulocytes Absolute 0.06 #; Lymphocytes # 0.6 10*3/uL (1.4-4.0); Lymphocytes % 6.4 % (21.3-54.2); Mean Corpuscular HGB Conc 32.2 GM/DL (32-36); Mean Corpuscular Hemoglobin 30 PG (27-34); Mean Corpuscular Volume 91.6 FL (87-102); Mean Platelet Volume 9.1 FL (9.6-12.0); Monocytes # 0.1 10*3/uL (0.11-0.8); Monocytes % 0.9 % (1.7-12.7); Neutrophils # 7.9 10*3/uL (1.4-7.4); Neutrophils % 91.8 % (38.7-73.9); Platelet Count 362 T/CUMM (130-400); Red Blood Count 4.27 MC/CUMM (3.8-5.5); Red Cell Distribution Width 13.4 % (9.3-17.3); White Blood Count 8.6 T/CUMM (4-12)
[2018-01-13 05:05] LABS: Calcium 8.6 MG/DL (8.5-10.1); Osmolality,Calculated 283.4 MOS/KG (273-304)
[2018-01-13 05:25] LABS: Lymphocytes 4 % (20-55); Segmented Neutrophils 96 % (50-85); Total Cells Counted 100
[2018-01-13 05:26] LABS: Platelet Estimate Normal
[2018-01-13] MEDS: ALBUTEROL 1.25 MG/3 ML NEB RESP TX PRN ×2 (05:40→12:50)
[2018-01-13] MEDS ORDERED: methylPREDNISolone SOD SUC 125 MG/2 ML VIAL IV SCH (06:00)
[2018-01-13] MEDS ORDERED: PANTOPRAZOLE 40 MG TABLET PO SCH (09:00)
[2018-01-13] MEDS ORDERED: THEOPHYLLINE ER (24 HR) 300 MG CAPSULE PO SCH (13:00)
[2018-01-13] MEDS ORDERED: methylPREDNISolone SOD SUC 40 MG/1 ML VIAL IV SCH (14:00)
[2018-01-13 15:02] VITALS: BP 116/64
[2018-01-14] MEDS ORDERED: predniSONE 20 MG TABLET PO SCH (09:00)
[2018-01-14] MEDS ORDERED: AZITHROMYCIN 250 MG TABLET PO SCH (09:00)
== END 2018-01-13 16:30 | disposition home or self-care (01) ==
LOC: EDBD → EDUNIT# → N.ED 18:59 → N.EDINP 18:59 → N.5E 21:44
PROVIDERS: ADMIT Hospitalist; ATTEND Hospitalist

== ENCOUNTER 2022-02-08 07:02 | Inpatient (IN) ==
[2022-02-08] MEDS ORDERED: ALBUTEROL/IPRATROPIUM 3 ML NEB RESP TX STA (07:57)
[2022-02-08] MEDS ORDERED: methylPREDNISolone SOD SUC 125 MG/2 ML VIAL IV STA (07:57)
[2022-02-08 08:38] LABS: Basophils # 0.1 10*3/uL (0.0-0.2); Basophils % 0.4 % (0.0-0.8); Hematocrit 38.9 VOL% (35.7-47.0); Hemoglobin 12.6 GM/DL (12.0-16.0); Immature Granulocytes % 0.6 %; Immature Granulocytes Absolute 0.08 #; Lymphocytes # 1.6 10*3/uL (1.4-4.0); Lymphocytes % 11.4 % (21.3-54.2); Mean Corpuscular HGB Conc 32.4 GM/DL (32-36); Mean Corpuscular Volume 92.4 FL (87-102); Mean Platelet Volume 9.2 FL (9.6-12.0); Monocytes # 1.1 10*3/uL (0.11-0.8); Monocytes % 7.8 % (1.7-12.7); Neutrophils % 79.8 % (38.7-73.9); Platelet Count 400 T/CUMM (130-400); Red Blood Count 4.21 MC/CUMM (3.8-5.5); Red Cell Distribution Width 13.7 % (9.3-17.3); White Blood Count 13.8 T/CUMM (4-12)
[2022-02-08 08:53] LABS: Calcium 9.2 MG/DL (8.5-10.1); Osmolality,Calculated 270.7 MOS/KG (273-304); Potassium 3.8 MMOL/L (3.5-5.1)
[2022-02-08] MEDS ORDERED: cefTRIAXone 2,000 MG in SODIUM CHLORIDE 0.9% 100 ML IV ONE (10:08)
[2022-02-08] MEDS ORDERED: AZITHROMYCIN INJ 500 MG in SODIUM CHLORIDE 0.9% 250 ML IV STA (10:09)
[2022-02-08] MEDS ORDERED: MAGNESIUM SULF RIDER 2 GM/50 ML PREMIX IV ONE (10:19)
[2022-02-08] MEDS ORDERED: ALBUTEROL 2.5 MG/3 ML NEB RESP TX PRN (10:22)
[2022-02-08] MEDS ORDERED: ACETAMINOPHEN 325 MG TABLET PO PRN (10:27)
[2022-02-08] MEDS ORDERED: DOCUSATE SODIUM 100 MG CAPSULE PO PRN (10:27)
[2022-02-08] MEDS ORDERED: ONDANSETRON 4 MG/2 ML VIAL IV PRN (10:27)
[2022-02-08] MEDS ORDERED: hydrOXYzine HCL 25 MG TABLET PO PRN (10:29)
[2022-02-08] MEDS: ALBUTEROL/IPRATROPIUM 3 ML NEB RESP TX SCH ×3 (11:10→19:21)
[2022-02-08] MEDS: ARFORMOTEROL 15 MCG/2 ML NEB RESP TX SCH ×2 (11:10→19:21)
[2022-02-08] MEDS: BUDESONIDE 0.5 MG/2 ML NEB RESP TX SCH ×2 (11:10→20:18)
[2022-02-08] MEDS: PANTOPRAZOLE 40 MG VIAL IV SCH (11:57)
[2022-02-08] MEDS: SODIUM CHLORIDE 0.45% 1,000 ML IV SCH (11:57)
[2022-02-08] MEDS: THEOPHYLLINE ER 300 MG TABLET PO SCH ×2 (11:58→18:01)
[2022-02-08] MEDS: guaiFENesin/DM ER 600-30 MG TABLET PO SCH ×2 (11:58→20:38)
[2022-02-08] MEDS: FLUTICASONE 50 MCG NASAL SPRAY 16 GM BOTTLE BOTH NARES SCH ×2 (11:58→20:38)
[2022-02-08] MEDS: MONTELUKAST 10 MG TABLET PO SCH ×2 (11:58→20:38)
[2022-02-08] MEDS: ENOXAPARIN 40 MG/0.4 ML SYRINGE SUBCUT SCH (11:58)
[2022-02-08] MEDS: methylPREDNISolone SOD SUC 40 MG/1 ML VIAL IV SCH (18:03)
[2022-02-08] MEDS: ZALEPLON 5 MG CAPSULE PO PRN (21:37)
[2022-02-09] MEDS: ALBUTEROL/IPRATROPIUM 3 ML NEB RESP TX SCH ×6 (00:08→19:18)
[2022-02-09] MEDS: methylPREDNISolone SOD SUC 40 MG/1 ML VIAL IV SCH ×3 (02:49→22:32)
[2022-02-09 06:22] LABS: Basophils % 0.2 % (0.0-0.8); Hematocrit 37.3 VOL% (35.7-47.0); Hemoglobin 12.2 GM/DL (12.0-16.0); Immature Granulocytes % 0.8 %; Immature Granulocytes Absolute 0.14 #; Lymphocytes # 0.5 10*3/uL (1.4-4.0); Lymphocytes % 2.8 % (21.3-54.2); Mean Corpuscular HGB Conc 32.7 GM/DL (32-36); Mean Corpuscular Volume 91.6 FL (87-102); Mean Platelet Volume 9.4 FL (9.6-12.0); Monocytes # 0.3 10*3/uL (0.11-0.8); Monocytes % 1.4 % (1.7-12.7); Neutrophils % 94.8 % (38.7-73.9); Platelet Count 412 T/CUMM (130-400); Red Blood Count 4.07 MC/CUMM (3.8-5.5); Red Cell Distribution Width 13.1 % (9.3-17.3); White Blood Count 18.5 T/CUMM (4-12)
[2022-02-09] MEDS: SODIUM CHLORIDE 0.45% 1,000 ML IV SCH (06:33)
[2022-02-09 06:38] LABS: Osmolality,Calculated 280.4 MOS/KG (273-304); Potassium 3.3 MMOL/L (3.5-5.1)
[2022-02-09] MEDS: BUDESONIDE 0.5 MG/2 ML NEB RESP TX SCH ×2 (06:42→19:18)
[2022-02-09] MEDS: ARFORMOTEROL 15 MCG/2 ML NEB RESP TX SCH ×2 (06:42→19:18)
[2022-02-09 07:08] LABS: Band Neutrophils 1 % (0-10); Lymphocytes 3 % (20-55); Microcytosis Slight; Target Cells Slight; Total Cells Counted 100
[2022-02-09 07:09] LABS: Platelet Estimate Increased
[2022-02-09] MEDS ORDERED: POTASSIUM CHLORIDE 20 MEQ TABLET PO ONE (08:00)
[2022-02-09] MEDS: amLODIPine 10 MG TABLET PO SCH (09:00)
[2022-02-09] MEDS: guaiFENesin/DM ER 600-30 MG TABLET PO SCH ×2 (09:00→20:22)
[2022-02-09] MEDS: MONTELUKAST 10 MG TABLET PO SCH ×2 (09:00→20:23)
[2022-02-09] MEDS: PANTOPRAZOLE 40 MG VIAL IV SCH (09:01)
[2022-02-09] MEDS: THEOPHYLLINE ER 300 MG TABLET PO SCH ×2 (09:01→20:23)
[2022-02-09] MEDS: cefTRIAXone 1,000 MG in SODIUM CHLORIDE 0.9% 100 ML IV SCH (09:01)
[2022-02-09] MEDS: FLUTICASONE 50 MCG NASAL SPRAY 16 GM BOTTLE BOTH NARES SCH ×2 (09:02→20:24)
[2022-02-09] MEDS: CHOLECALCIFEROL 1,000 UNIT TABLET PO SCH (09:44)
[2022-02-09] MEDS: AZITHROMYCIN INJ 500 MG in SODIUM CHLORIDE 0.9% 250 ML IV SCH (09:45)
[2022-02-09] MEDS ORDERED: SODIUM CHLORIDE 0.9% 1,000 ML IV ONE (11:16)
[2022-02-09] MEDS: ENOXAPARIN 40 MG/0.4 ML SYRINGE SUBCUT SCH (13:17)
[2022-02-09] MEDS: ZALEPLON 5 MG CAPSULE PO PRN (22:32)
[2022-02-10] MEDS: SODIUM CHLORIDE 0.45% 1,000 ML IV SCH ×2 (00:03→18:04)
[2022-02-10] MEDS: ALBUTEROL/IPRATROPIUM 3 ML NEB RESP TX SCH ×6 (00:03→19:30)
[2022-02-10 05:27] LABS: Basophils # 0.1 10*3/uL (0.0-0.2); Basophils % 0.3 % (0.0-0.8); Eosinophils # 0.6 10*3/uL (0.0-0.87); Eosinophils % 2.6 % (0.00-10.9); Hemoglobin 11.7 GM/DL (12.0-16.0); Immature Granulocytes % 1.3 %; Immature Granulocytes Absolute 0.29 #; Lymphocytes # 0.6 10*3/uL (1.4-4.0); Lymphocytes % 2.5 % (21.3-54.2); Mean Corpuscular HGB Conc 32.5 GM/DL (32-36); Mean Corpuscular Volume 92.5 FL (87-102); Mean Platelet Volume 9.1 FL (9.6-12.0); Monocytes # 0.5 10*3/uL (0.11-0.8); Monocytes % 2.1 % (1.7-12.7); Neutrophils % 91.2 % (38.7-73.9); Platelet Count 428 T/CUMM (130-400); Red Blood Count 3.89 MC/CUMM (3.8-5.5); Red Cell Distribution Width 13.4 % (9.3-17.3); White Blood Count 22.4 T/CUMM (4-12)
[2022-02-10 05:59] LABS: Calcium 8.7 MG/DL (8.5-10.1); Osmolality,Calculated 282.1 MOS/KG (273-304); Potassium 3.8 MMOL/L (3.5-5.1)
[2022-02-10 06:03] LABS: Band Neutrophils 1 % (0-10); Lymphocytes 7 % (20-55); Total Cells Counted 100
[2022-02-10 06:04] LABS: Microcytosis Slight; Platelet Estimate Increased
[2022-02-10] MEDS: ARFORMOTEROL 15 MCG/2 ML NEB RESP TX SCH ×2 (07:20→19:30)
[2022-02-10] MEDS: BUDESONIDE 0.5 MG/2 ML NEB RESP TX SCH ×2 (07:20→19:30)
[2022-02-10] MEDS: guaiFENesin/DM ER 600-30 MG TABLET PO SCH ×2 (09:30→20:39)
[2022-02-10] MEDS: THEOPHYLLINE ER 300 MG TABLET PO SCH ×2 (09:30→20:39)
[2022-02-10] MEDS: MONTELUKAST 10 MG TABLET PO SCH ×2 (09:31→20:39)
[2022-02-10] MEDS: cefTRIAXone 1,000 MG in SODIUM CHLORIDE 0.9% 100 ML IV SCH (09:31)
[2022-02-10] MEDS: amLODIPine 10 MG TABLET PO SCH (09:31)
[2022-02-10] MEDS: PANTOPRAZOLE 40 MG VIAL IV SCH (09:31)
[2022-02-10] MEDS: CHOLECALCIFEROL 1,000 UNIT TABLET PO SCH (09:31)
[2022-02-10] MEDS: FLUTICASONE 50 MCG NASAL SPRAY 16 GM BOTTLE BOTH NARES SCH ×2 (09:33→20:38)
[2022-02-10 11:08] LABS: Free T4 (Free Thyroxine) 1.03 NG/DL (0.76-1.46); Thyroid Stimulating Hormone 0.082 uIU/ml (0.358-3.74)
[2022-02-10] MEDS: AZITHROMYCIN INJ 500 MG in SODIUM CHLORIDE 0.9% 250 ML IV SCH (12:05)
[2022-02-10] MEDS: ENOXAPARIN 40 MG/0.4 ML SYRINGE SUBCUT SCH (12:05)
[2022-02-10] MEDS: methylPREDNISolone SOD SUC 40 MG/1 ML VIAL IV SCH ×2 (12:05→23:38)
[2022-02-10] MEDS: BENZONATATE 100 MG CAPSULE PO SCH ×2 (15:25→20:39)
[2022-02-10] MEDS: ZALEPLON 5 MG CAPSULE PO PRN (23:33)
[2022-02-11] MEDS: ALBUTEROL/IPRATROPIUM 3 ML NEB RESP TX SCH ×7 (00:39→23:45)
[2022-02-11 05:15] LABS: Basophils # 0.1 10*3/uL (0.0-0.2); Basophils % 0.4 % (0.0-0.8); Hematocrit 38.4 VOL% (35.7-47.0); Hemoglobin 12.4 GM/DL (12.0-16.0); Immature Granulocytes % 1.5 %; Immature Granulocytes Absolute 0.21 #; Lymphocytes # 0.8 10*3/uL (1.4-4.0); Lymphocytes % 5.5 % (21.3-54.2); Mean Corpuscular HGB Conc 32.3 GM/DL (32-36); Mean Corpuscular Volume 92.5 FL (87-102); Monocytes # 0.4 10*3/uL (0.11-0.8); Neutrophils % 89.6 % (38.7-73.9); Platelet Count 453 T/CUMM (130-400); Red Blood Count 4.15 MC/CUMM (3.8-5.5); Red Cell Distribution Width 13.3 % (9.3-17.3); White Blood Count 13.6 T/CUMM (4-12)
[2022-02-11 05:38] LABS: Calcium 9.2 MG/DL (8.5-10.1); Osmolality,Calculated 278.4 MOS/KG (273-304); Potassium 4.1 MMOL/L (3.5-5.1)
[2022-02-11] MEDS: SODIUM CHLORIDE 0.45% 1,000 ML IV SCH ×2 (06:21→21:17)
[2022-02-11] MEDS: ARFORMOTEROL 15 MCG/2 ML NEB RESP TX SCH ×2 (07:05→19:55)
[2022-02-11] MEDS: BUDESONIDE 0.5 MG/2 ML NEB RESP TX SCH ×2 (07:05→19:55)
[2022-02-11] MEDS: FLUTICASONE 50 MCG NASAL SPRAY 16 GM BOTTLE BOTH NARES SCH ×2 (09:27→21:16)
[2022-02-11] MEDS: PANTOPRAZOLE 40 MG VIAL IV SCH (09:27)
[2022-02-11] MEDS: THEOPHYLLINE ER 300 MG TABLET PO SCH ×2 (09:28→21:44)
[2022-02-11] MEDS: MONTELUKAST 10 MG TABLET PO SCH ×2 (09:28→21:15)
[2022-02-11] MEDS: BENZONATATE 100 MG CAPSULE PO SCH ×3 (09:28→21:15)
[2022-02-11] MEDS: CHOLECALCIFEROL 1,000 UNIT TABLET PO SCH (09:28)
[2022-02-11] MEDS: guaiFENesin/DM ER 600-30 MG TABLET PO SCH ×2 (09:28→21:15)
[2022-02-11] MEDS: cefTRIAXone 1,000 MG in SODIUM CHLORIDE 0.9% 100 ML IV SCH (09:29)
[2022-02-11] MEDS: amLODIPine 10 MG TABLET PO SCH (09:37)
[2022-02-11] MEDS: AZITHROMYCIN INJ 500 MG in SODIUM CHLORIDE 0.9% 250 ML IV SCH (14:35)
[2022-02-11] MEDS: methylPREDNISolone SOD SUC 40 MG/1 ML VIAL IV SCH ×2 (14:37→22:05)
[2022-02-11] MEDS: ENOXAPARIN 40 MG/0.4 ML SYRINGE SUBCUT SCH (14:37)
[2022-02-11] MEDS ORDERED: THEOPHYLLINE ER 300 MG TABLET PO SCH (21:00)
[2022-02-11] MEDS: ZALEPLON 5 MG CAPSULE PO PRN (22:05)
[2022-02-12] MEDS: ALBUTEROL/IPRATROPIUM 3 ML NEB RESP TX SCH ×4 (03:45→15:35)
[2022-02-12 06:00] LABS: Basophils % 0.2 % (0.0-0.8); Hematocrit 39.9 VOL% (35.7-47.0); Hemoglobin 12.7 GM/DL (12.0-16.0); Immature Granulocytes Absolute 0.25 #; Lymphocytes # 0.9 10*3/uL (1.4-4.0); Lymphocytes % 7.4 % (21.3-54.2); Mean Corpuscular HGB Conc 31.8 GM/DL (32-36); Mean Corpuscular Volume 93.2 FL (87-102); Monocytes # 0.4 10*3/uL (0.11-0.8); Monocytes % 3.1 % (1.7-12.7); Neutrophils % 87.3 % (38.7-73.9); Platelet Count 463 T/CUMM (130-400); Red Blood Count 4.28 MC/CUMM (3.8-5.5); Red Cell Distribution Width 13.2 % (9.3-17.3); White Blood Count 12.7 T/CUMM (4-12)
[2022-02-12 06:19] LABS: Calcium 9.1 MG/DL (8.5-10.1); Osmolality,Calculated 278.4 MOS/KG (273-304); Potassium 5.1 MMOL/L (3.5-5.1)
[2022-02-12] MEDS: ARFORMOTEROL 15 MCG/2 ML NEB RESP TX SCH (07:15)
[2022-02-12 07:44] VITALS: BP 118/67
[2022-02-12] MEDS: BUDESONIDE 0.5 MG/2 ML NEB RESP TX SCH (09:10)
[2022-02-12] MEDS: FLUTICASONE 50 MCG NASAL SPRAY 16 GM BOTTLE BOTH NARES SCH (09:47)
[2022-02-12] MEDS: THEOPHYLLINE ER 300 MG TABLET PO SCH (09:48)
[2022-02-12] MEDS: amLODIPine 10 MG TABLET PO SCH (09:48)
[2022-02-12] MEDS: CHOLECALCIFEROL 1,000 UNIT TABLET PO SCH (09:48)
[2022-02-12] MEDS: guaiFENesin/DM ER 600-30 MG TABLET PO SCH (09:48)
[2022-02-12] MEDS: BENZONATATE 100 MG CAPSULE PO SCH ×2 (09:48→19:50)
[2022-02-12] MEDS: PANTOPRAZOLE 40 MG VIAL IV SCH (09:49)
[2022-02-12] MEDS: cefTRIAXone 1,000 MG in SODIUM CHLORIDE 0.9% 100 ML IV SCH (09:49)
[2022-02-12] MEDS: MONTELUKAST 10 MG TABLET PO SCH (09:49)
[2022-02-12] MEDS: AZITHROMYCIN INJ 500 MG in SODIUM CHLORIDE 0.9% 250 ML IV SCH (10:33)
[2022-02-12] MEDS: methylPREDNISolone SOD SUC 40 MG/1 ML VIAL IV SCH (12:02)
[2022-02-12] MEDS: ENOXAPARIN 40 MG/0.4 ML SYRINGE SUBCUT SCH (12:02)
[2022-02-12] MEDS: SODIUM CHLORIDE 0.45% 1,000 ML IV SCH (19:50)
== END 2022-02-12 16:01 | disposition home or self-care (01) | DRG 202 ==
LOC: N.ED 07:02 → N.3E 10:16 → SUATTDRO 10:16 → N.3E 10:58
PROVIDERS: ADMIT Family Medicine; ATTEND Emergency Medicine